=== PATIENT | female | born 1985 | race Caucasian/White ===

== ENCOUNTER 2019-12-05 14:04 | Emergency (ER) | payer OTHER ==
[~2019-12-05] VITALS: Ht 157.5 cm; Wt 61.7 kg
[2019-12-05 15:46] VITALS: BP 112/80
--- NOTE | 2019-12-05 15:46 | NUR ---
Patient discharged to home in stable conditon. Written and verbal after care instructions given. Patient verbalizes understanding of instructions. pt walked out of Er w/ steady gait.
== END 2019-12-05 15:50 | disposition home or self-care (01) ==
LOC: ER 14:04
DX: M54.40 Lumbago with sciatica, unspecified side (principal); G43.909 Migraine, unspecified, not intractable, without status migrainosus
CPT/HCPCS: A4663